=== PATIENT | female | born 1965 | race Caucasian/White ===

== ENCOUNTER → 2020-07-04 08:32 | Outpatient (BNVA) | payer OTHER, SELFPAY | PROVIDERS: Visit Provider Family Medicine Adult Medicine | DX: Z76.89 Persons encountering health services in other specified circumstances (principal) ==

== ENCOUNTER → 2020-09-11 14:39 | Outpatient (BNVA) | payer OTHER, SELFPAY | PROVIDERS: Visit Provider Family Medicine Adult Medicine | DX: Z76.89 Persons encountering health services in other specified circumstances (principal) ==

== ENCOUNTER → 2020-10-31 10:52 | Outpatient (BNVA) | payer OTHER, SELFPAY | PROVIDERS: Visit Provider Family Medicine Adult Medicine ==

== ENCOUNTER 2021-10-01 17:10 | Outpatient (REF) | payer OTHER, SELFPAY ==
[2021-10-01 18:42] LABS: Amphetamine Screen Urine Not Detected (Not Detect); Barbiturates, Urine Not Detected (Not Detect); Benzodiazepines Screen Urine Not Detected (Not Detect); Cannabinoid Screen Urine Not Detected (Not Detect); Cocaine Screen Urine Not Detected (Not Detect); Fentanyl, urine Not Detected (Not Detect); Opiate Screen Urine Not Detected (Not Detect); Phencyclidine Screen Urine Not Detected (Not Detect)
[2021-10-08 12:14] LABS: Codeine, Ur NEGATIVE; Hydrocodone, Ur NEGATIVE
[2021-10-08 12:15] LABS: Hydromorphone, Ur NEGATIVE; Morphine, Ur NEGATIVE; Oxycodone, Ur NEGATIVE
[2021-10-08 12:16] LABS: Norhydrocodone, Ur NEGATIVE; Oxymorphone, Ur NEGATIVE
[2021-10-08 12:18] LABS: Nordiazepam, GCMS Urine NEGATIVE; Oxazepam, GCMS Urine NEGATIVE
[2021-10-08 12:19] LABS: Alphahydroxymidazolam,GCMS Ur NEGATIVE; Alphahydroxytriazolam, GCMS Ur NEGATIVE; Alprazolam, GCMS Urine NEGATIVE; Temazepam, GCMS Urine NEGATIVE
[2021-10-08 12:20] LABS: Aminoclonazepam, GCMS Urine NEGATIVE; Flurazepam Metabolite,GCMS Ur NEGATIVE
== END 2021-10-01 17:11 | disposition home or self-care (01) ==
LOC: HO.LAB 17:10
PROVIDERS: Visit Provider Physician Assistant
DX: F11.90 Opioid use, unspecified, uncomplicated (principal)
CPT/HCPCS: 80307; 80346; 80364; 80365

== ENCOUNTER 2021-11-14 10:34 | Outpatient (REF) | payer OTHER, SELFPAY ==
--- NOTE | 2021-11-14 11:29 | ECG_ITS ---
Test Reason : CP Blood Pressure : / mmHG Vent. Rate : 064 BPM Atrial Rate : 064 BPM P-R Int : 196 ms QRS Dur : 076 ms QT Int : 424 ms P-R-T Axes : 070 032 030 degrees QTc Int : 437 ms Normal sinus rhythm with sinus arrhythmia Possible Left atrial enlargement Borderline ECG No previous ECGs available Referred By: Glenn Obrien Electronically Signed By:Pedro Luis Alejandro
[2021-11-14 11:43] LABS: Hematocrit 37.2 % (37.0-47.0); Hemoglobin 11.9 g/dl (12.0-16.0); Mean Corpuscular Hemoglobin 30.1 pg (27.0-33.0); Mean Corpuscular Volume 94.2 fL (80.0-98.0); Mean Platelet Volume 12.7 fL (9.4-12.3); Platelet Count 241 X10*3/uL (160-400); Red Blood Count 3.95 X10*6/uL (4.20-5.50); Red Cell Distribution Width 12.8 % (11.0-16.0)
[2021-11-14 12:09] LABS: Estimated Average Glucose 114 mg/dL; Hemoglobin A1c % 5.6 %
[2021-11-14 12:18] LABS: Alanine Aminotransferase 32 U/L (0-31); Albumin Level 4.3 g/dL (3.5-5.0); Alkaline Phosphatase 76 U/L (39-117); Anion Gap 10 (12-20); Aspartate Amino Transferase 43 U/L (5-31); Bilirubin Total 0.5 mg/dL (0.0-1.0); Blood Urea Nitrogen 15 mg/dL (9-16); Calcium 9.9 mg/dL (8.4-10.2); Carbon Dioxide 31 mmol/L (22-29); Chloride 103 mmol/L (96-108); Cholesterol 235 mg/dL; Estimated Glomerular Filt Rate > 60; Glucose Fasting 97 mg/dL (60-99); HDL Cholesterol 73 mg/dL; LDL Cholesterol Calculated 148 mg/dl; Potassium 4.9 mmol/L (3.3-5.1); Sodium 139 mmol/L (135-145); Total Protein 7.2 g/dL (6.5-8.0); Triglycerides 74 mg/dL
[2021-11-14 12:41] LABS: TSH reflex Free T4 3.03 uIU/mL (0.32-4.0)
[2021-11-18 08:07] LABS: Codeine, Ur NEGATIVE
[2021-11-18 08:08] LABS: Hydrocodone, Ur NEGATIVE; Hydromorphone, Ur NEGATIVE; Morphine, Ur NEGATIVE; Oxycodone, Ur NEGATIVE
[2021-11-18 08:09] LABS: Norhydrocodone, Ur NEGATIVE; Noroxycodone, Ur NEGATIVE; Oxymorphone, Ur NEGATIVE
== END 2021-11-14 10:35 | disposition home or self-care (01) ==
LOC: HO.LAB 10:34
PROVIDERS: Absent Provider Nurse Practitioner Acute Care; PCP Physician Assistant; Visit Provider Physician Assistant
DX: Z01.818 Encounter for other preprocedural examination (principal); Z13.29 Encounter for screening for other suspected endocrine disorder; Z13.220 Encounter for screening for lipoid disorders; F11.90 Opioid use, unspecified, uncomplicated
CPT/HCPCS: 80053; 80061; 80364; 80365; 83036; 84443; 85027; 93005

== ENCOUNTER 2022-04-23 10:00 | Outpatient (RCR) | payer OTHER, SELFPAY ==
[2022-04-07 10:20] VITALS: BP 144/67
--- NOTE | 2022-04-07 15:23 | MHC.PT.EP ---
[facility] [place] Office [place] Office [place] Office [address] [place] [address] [address] [phone] F: [phone] F: [phone] F: [phone] F: [phone] Physical Therapy Plan of Care Date of Evaluation: Date of Surgery: Diagnosis: THORACOLUMBAR AND LUMBOSACRAL DISC DISORDER Rt LE QUAD/ PATELLAR TENDON / ITB STRAIN Assessment: 56 YO FEMALE REF TO PT WITH AGNES SHPAIN AND AGNES HAND NUMBNESS x 6 MONTHS - SHE ALSO PRESENTED NOTING Rt KNEE/ ITB INJURY APPROX 6 WKS AGO WHICH IS IMPACTUNG HER OVERALL FUNCTIONAL MOB. OBJECTIVELY, Pt HAS DOMINANT PECTS AND UT- SHE HAS ANT GH DRIFT, DECR POSTURAL AWARENESS, LIMITATIONS IN CERV AND SH END ROM, DECR SCAP STAB/ POST RC STRENGTH, AND PAIN/ PSEUDO TOS. FUNCTIONALLY, Pt HAS DIFFIC SLEEPING, LIMITED W EXERCISING (CROSS FIT) , AND DECR ALEXANDER TO PERFORM HIGHER LEVEL HOUSE CHORES. Pt IS A GOOD CANDIDATE FOR SKILLED PT TO GUIDE HER WITH SELF-SX PAIN MGMT, MODIFY EXER ROUTINE/ STRETCHING, AND SCAP STRENGTH. Frequency and Duration: The patient will be seen 2 x WK x 4 WKS Short Term Goals: *Pt DEMON INDEP SELF-POSTURAL CORRECT/ SCAP MM ACTIV IN 2 WKS *Pt'S AGNES SH PAIN DECR TO 2-3/10 AND AGNES HAND SXS DECR BY 75* IN 3 WKS *COMPLETE ASSESSMENT *Pt DEMON WFL AROM CERV AND AGNES SH IN 2 WKS Custodial Goals: *Pt INDEP W HEP AND SELF-SX MGMT STRATEGIES IN 4 WKS *IMPROVED OSWESTRY SCORE BY 5-8 POINTS (AT EVAL 26/45) IN 4 WKS Treatment Plan: Modalities to reduce pain, spasms and effusion. Manual therapy to restore motion and function. Therapeutic exercise to improve strength and flexibility. Neuromuscular re-education for posture and balance. Therapeutic activities to return to functional activities of daily living. Electronically signed by: Radha Barragan, PT Please sign and return to therapist. Thank you for your referral.
--- NOTE | 2022-04-27 13:25 | MHC.PT.DC ---
[facility] [place] Office [place] Office [place] Office [address] Douglas Lauren [address] [phone] F: [phone] F: [phone] F: [phone] F: [phone] Physical Therapy Discharge Report Diagnosis: THORACOLUMBAR AND LUMBOSACRAL DISC DISORDER Rt LE QUAD/ PATELLAR TENDON / ITB STRAIN Date of Surgery: Date of Evaluation: 04/07/22 Date of Discharge: 04/27/22 Treatments to Date: 2 Cancellations to Date: 1 No Shows to Date: 1 Discharge Status: Achieved Goals Improved Function Independent with HEP Patient Elected to Stop Discharge Summary: Pt HAS PROGRESSED NICELY IN PT, WE HAVE EDUC HER RE SELF-MGMT OF SXS AND DEV A PROGR HEP TO ADDRESS MID BACK MM ACTIV AND REDUCE UT DOMINANCE. SHE NOTED SIGNIF REDUCTION IN HER BACK PAIN AND SHE WAS INDEP W SELF CORRECTION OF HER POSTURE. SHE FEELS READY TO CONT ON HER OWN AT THIS TIME, AND , IS THEREFORE DISCHARGED FROM PT AT THIS TIME. Electronically signed by: Radha Barragan,PT Please sign and return to therapist. Thank you for your referral.
== END 2022-04-27 13:25 | disposition home or self-care (01) ==
LOC: HO.PT 10:00
PROVIDERS: PCP Physician Assistant; Visit Provider Physician Assistant
DX: M51.9 Unspecified thoracic, thoracolumbar and lumbosacral intervertebral disc disorder (principal)
CPT/HCPCS: 97110; 97140; 97162; 97530

== ENCOUNTER 2022-05-04 08:25 | Outpatient (REF) | payer OTHER, SELFPAY ==
--- NOTE | ~2022-05-04 | XR_ITS ---
EXAMINATION: 1. RADIOGRAPHS RIGHT KNEE 2. RADIOGRAPHS STANDING BILATERAL KNEES CLINICAL INFORMATION: Knee pain COMPARISON: None TECHNIQUE: Standing frontal views of both knees were obtained. Additional lateral and patellar sunrise views of the right knee were obtained. FINDINGS: Right knee: No fracture or dislocation. Tiny suprapatellar joint effusion. Joint spaces are well-maintained. No significant degenerative changes. No focal soft tissue swelling of the anterior knee. Standing frontal left knee: Minimal narrowing of the medial joint space height.: XR/XR knee standing BI IMPRESSION: -Small suprapatellar joint effusion of the right knee. -Minimal degenerative changes of the left knee.
--- NOTE | ~2022-05-04 | XR_ITS ---
EXAMINATION: 1. RADIOGRAPHS RIGHT KNEE 2. RADIOGRAPHS STANDING BILATERAL KNEES CLINICAL INFORMATION: Knee pain COMPARISON: None TECHNIQUE: Standing frontal views of both knees were obtained. Additional lateral and patellar sunrise views of the right knee were obtained. FINDINGS: Right knee: No fracture or dislocation. Tiny suprapatellar joint effusion. Joint spaces are well-maintained. No significant degenerative changes. No focal soft tissue swelling of the anterior knee. Standing frontal left knee: Minimal narrowing of the medial joint space height.: XR/XR knee RT 2V IMPRESSION: -Small suprapatellar joint effusion of the right knee. -Minimal degenerative changes of the left knee.
== END 2022-05-04 08:26 | disposition home or self-care (01) ==
LOC: HO.HOSX 08:25
PROVIDERS: Visit Provider Physician Assistant
DX: M25.561 Pain in right knee (principal); M25.562 Pain in left knee
CPT/HCPCS: 73560; 73565

== ENCOUNTER 2022-05-15 18:31 | Outpatient (REF) | payer OTHER, SELFPAY ==
--- NOTE | ~2022-05-15 | MR_ITS ---
EXAMINATION: MR KNEE WITHOUT CONTRAST, RIGHT CLINICAL INFORMATION: Right knee pain. COMPARISON: Radiographs 05/04/2022. TECHNIQUE: MRI of the knee without contrast was performed using routine sequences on a high-field scanner. Additional sagittal images, to include the quadriceps myotendinous junction, are performed. FINDINGS: MENISCI: MEDIAL MENISCUS: There may be a small peripheral, ill-defined undersurface tear at the junction of the body and posterior horn. LATERAL MENISCUS: Inner margin/undersurface tear of the posterior horn/body with a portion of the meniscus displaced into the meniscotibial recess posteriorly. LIGAMENTS: CRUCIATE: There is mild edema along the ACL which may represent a mild sprain. COLLATERAL: Intact. EXTENSOR MECHANISM: Intact. ARTICULAR CARTILAGE/BONE: PATELLOFEMORAL COMPARTMENT: Focal articular cartilage irregularity of the medial trochlea inferiorly. MEDIAL COMPARTMENT: Peripheral cartilage thinning and subchondral marrow edema of the tibia medially. LATERAL COMPARTMENT: Mild bone bruise of the femoral condyle anterolaterally. JOINT FLUID AND BURSAE: Moderate joint effusion. MR/MR knee RT wo con IMPRESSION: Inner margin/undersurface tearing of the lateral meniscus at the junction of the posterior horn and body, where a portion of the meniscal periphery is displaced into the meniscotibial recess. Possible small undersurface tear of the medial meniscus peripherally at the junction of the body and posterior horn. Probable mild ACL sprain. The quadriceps tendon is intact. Mild patellofemoral/medial compartment osteoarthritis and mild bone bruise at the anterolateral aspect of the lateral femoral condyle with moderate joint effusion.
== END 2022-05-15 18:32 | disposition home or self-care (01) ==
LOC: HO.MRI 18:31
PROVIDERS: Visit Provider Physician Assistant
DX: S76.101A Unspecified injury of right quadriceps muscle, fascia and tendon, initial encounter (principal)
CPT/HCPCS: 73721

== ENCOUNTER 2022-06-03 09:52 | Day surgery (SDC) | payer OTHER, SELFPAY ==
[2022-06-03] VITALS (9 sets, daily range): BP systolic 103–120; BP diastolic 46–66; PULSE 54–65; RESP 15–20; TEMP 36.2–36.4; O2SAT 98–100; BMI 21.0
[2022-06-03] MEDS: Lactated Ringers 1,000 ML 50 ML IVCONT (10:20)
--- NOTE | 2022-06-03 13:16 | MHC.SHP ---
Pre-Procedural Eval Section A Date of Service: 06/03/22 The patient is an INPATIENT: No Changes since office visit: Yes Patient answered all questions; No Cold of Flu in the past 2 weeks, No New Medical Problems and No Changes in Medication The History & Physical has been completed within 30 days and I have reviewed it.: Yes Section B Chief Complaint: Other tear of lateral meniscus, current injury, ri Allergies: Allergies Allergy/AdvReac Type Severity Reaction Status Date / Time No Known Allergies Allergy Verified 06/03/22 10:30 Plan I have reviewed the history and physical and performed a pertinent physical examination on my patient. No changes have occurred unless specified.
--- NOTE | 2022-06-03 13:47 | HO.ANESPROP2 ---
HPI - Anesthesia Eval Consult details Narrative: 56F for right knee scope PMFSH Active Problems Active Problems: All Active Problems (Updated 05/25/22 @ 13:49 by Kenn Madison) Tear of lateral meniscus of right knee (Acute) Injury of quadriceps tendon (Acute) Recurrent right knee instability (Acute) IT band syndrome (Acute) Right knee pain (Acute) Paresthesia of hand, bilateral (Acute) JADA (generalized anxiety disorder) (Acute) Radiculopathy of cervical spine (Acute) Borderline high cholesterol (Acute) Elevated LFTs (Acute) Annual physical exam (Acute) Chronic pain disorder (Acute) Pre-op evaluation (Acute) Screening for hypothyroidism (Acute) Screening for hypercholesterolemia (Acute) Screening for diabetes mellitus (DM) (Acute) Right lumbar radiculopathy (Acute) Past Medical History Medical History Colon cancer screening Right lumbar radiculopathy Family History Family history of problems with anesthesia: No Surgical History History of Problems with Anesthesia: No Social History Social History Housing: House Alcohol intake: never Patient Tobacco Use Status: Never used Tobacco Tobacco use type: Cigarette e-Cigarette/Vaping Use: Never Used Second Hand Smoke Exposure: No Are you DNR?: No Advance Directives: No Advance Directives Information Provided: Yes Nutrition Risks: No Nutritional Risk Current occupational status: employed 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[employer], 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 Cognitive needs: No Hearing needs: No Vision needs: No Meds Allergies Allergy/AdvReac Type Severity Reaction Status Date / Time No Known Allergies Allergy Verified 06/03/22 10:30 Active Medications: Current Medications Lactated Ringer's (Lr) 1,000 mls @ 50 mls/hr IVCONT .Q20H ANUSHA Last Admin: 06/03/22 10:20 Dose: 50 mls/hr Home Medications Medication Instructions Recorded Confirmed Last Taken Type lorazepam 0.5 mg tablet 0.5 mg PO BID PRN Anxiety 12/09/21 05/28/22 06/02/22 History Exam Exam Date and Time: June 03, 2022 1347 Height,Weight and Vital Signs: Height 5 ft 2 in Weight 52.163 kg Airway Mallampati Class: II TM Dist: >3cm Neck ROM: Full Loose/Missing/Broken Teeth: Yes (Caps and fillings ) Heart: S1,S2 Lungs: b/l breath sounds Assessment and Plan Assessment Anesthesia Assessment: Anesthesia Plan Discussed and Chart Reviewed Final Anesthetic Review Family History of Problems with Anesthesia: No History of Problems with Anesthesia: No NPO: Yes ASA Class: II Final Preanesthetic Review: Meds/Allgs Chart Reviewed, Consent Obtained/Reviewed and Anes Risks/Benef Reviewed Patient Risk: Intermediate Procedure Risk: Intermediate Anesthetic Plan Anesthetic Plan: GA Disposition: Standard PACU
--- NOTE | 2022-06-03 14:35 | PM.OP ---
Brief Operative Note Date of Service: 06/03/22 Pre-op diagnosis: Right knee lateral meniscus tear Post-op diagnosis: other (1) same 2) medial PF OA) Procedure: Right knee with partial lateral meniscectomy Surgeon: Christopher Landin MD Anesthesia: GETA and local Was an Inspector Multifocal Lens used for this Procedure?: No Estimated blood loss (mL): 1 IV fluids (mL): 500 Pathology: none sent Condition: stable Disposition: PACU
[2022-06-03] MEDS: fentaNYL citrate/PF 100 MCG/2 ML VIAL 50 MCG IVPUSH ×2 (15:15→15:20)
[2022-06-03] MEDS: oxyCODONE HCl Immed Release 5 MG TABLET PO (16:15)
--- NOTE | 2022-06-08 10:03 | W.PM.OPN ---
Operative Note Operative Note Date of Service: 06/03/22 Narrative: Date of Service: 06/03/22 Pre-op diagnosis: Right knee lateral meniscus tear Post-op diagnosis: other (1) same 2) medial PF OA) Procedure: Right knee with partial lateral meniscectomy Surgeon: Christopher Landin MD Anesthesia: GETA and local Was an Advertising Assistant Manager used for this Procedure?: No Estimated blood loss (mL): 1 IV fluids (mL): 500 Pathology: none sent Condition: stable Disposition: PACU Procedure in detail: Patient was brought to the operating room placed supine on the arthroscopic table and prepped and draped in standard sterile fashion. A time-out was called to identify proper site proper procedure proper surgeon and IV antibiotics per weight were administered. I began by exsanguinating the limb and insufflating tourniquet to 300 mm Hg. Then made a standard anterolateral stab incision. The knee was insufflated with water and 30 degree arthroscope was placed. There was grade 0 fibrillations of the patella and the suprapatellar pouch and the gutters were clean. I descended into the medial compartment where I made my medial portal under direct visualization. There were no changes to the medial compartment. The meniscus and cartilage were normal. The ACL was examined and intact. I entered the lateral compartment and there was a degenerative tear through the body of the lateral meniuscus. I probed this and there was at least 50% of the peripheral body intact and this was stable. The root was intact. This was a predominantly white/white tear and repair was not indicated. I therefore excised the torn portion with a combination of a shaver and biter until the meniscus flap was removed. The remaining meniscus was stable. Approximately 40 % of the meniscal volume was removed. I took the knee through full ROM and all loose meniscal fragments were removed. The cartilage was unormal. I took my final pictures. I then removed all instrumentation and closed the portals with skin glue. 25 mL of 2% Marcaine with epinephrine was injected into the joint and the surrounding soft tissues. Patient was then placed in sterile dressing extubated brought recovery room stable condition. There were no known complications.
== END 2022-06-03 17:10 | disposition home or self-care (01) ==
PROVIDERS: Visit Provider Orthopaedic Surgery
PROC: (CPT 29870; principal; 2022-06-03 12:20)
DX: S83.281A Other tear of lateral meniscus, current injury, right knee, initial encounter (principal); M17.11 Unilateral primary osteoarthritis, right knee; X50.1XXA Overexertion from prolonged static or awkward postures, initial encounter; Y93.89 Activity, other specified; Y92.9 Unspecified place or not applicable; Y99.8 Other external cause status; Z79.899 Other long term (current) drug therapy
CPT/HCPCS: 29881; A4649; J0131; J0690; J1100; J1885; J2250; J2405; J2795; J3010

== ENCOUNTER 2022-07-17 10:00 | Outpatient (RCR) | payer OTHER, SELFPAY ==
--- NOTE | 2022-06-08 13:27 | MHC.PT.EP ---
[facility] [place] Office [place] Office [place] Office [address] Douglas Lauren [address] [phone] F: [phone] F: [phone] F: [phone] F: [phone] Physical Therapy Plan of Care Date of Evaluation: Date of Surgery: 06/03/22 Diagnosis: S/P LATERAL MENISECTOMY Assessment: AVERY IS A PLEASANT 56 YO FEMALE WHO PRESENTS S/P KNEE /MENISECTOMY. PRESENTS POD #5 FOR ORTHOPEDIC FOLLOW UP AND PT EVALUATION. UPON EXAM SHE DEMONSTRATES THE EXPECTED IMPAIRMENTS OF DECREASED ROM, DECREASED STRENGTH, ALTERED POSTURE AND POSITIONING,ALTERED GAIT AND BALANCE, AND INCREASED PAIN AND EDEMA. FUNCTIONAL LIMITATIONS INCLUDE DECREASED ABILITY TO PERFORM HOMEMAKING AND SELF-CARE TASKS, DECREASED ABILITY TO PERFORM WALKING, RUNNING, JUMPING AND SQUATTING, INABILITY TO DRIVE AND PERFORM WORK TASKS, DECREASED PARTICIPATION IN COMMUNITY AND RECREATIONAL ACTIVITIES AND DISRUPTED SLEEP. THE Pt IS A GOOD CANDIDATE FOR SKILLED PT DUE TO AGE, POTENTIAL REMEDIATION OF IMPAIRMENTS, TYPICAL DISEASE/CONDITION PROGRESSION AND PROGNOSIS, COMORBIDITIES, AND MOTIVATION. PT WOULD BENEFIT FROM TAILORED PROGRAM OF THERAPEUTIC ACTIVITIES, FUNCTIONAL TRAINING, GAIT TRAINING, POSTURAL EDUCATION, NEUROMUSCULAR RE-EDUCATION, AND MODALITIES NEEDED. 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 Manual therapy to restore motion and function. Therapeutic exercise to improve strength and flexibility. Neuromuscular re-education for posture and balance. Therapeutic activities to return to functional activities of daily living. Electronically signed by: SAMIA HINES PT, DPT Please sign and return to therapist. Thank you for your referral.
--- NOTE | 2022-08-11 14:37 | MHC.PT.DC ---
[facility] [place] Office [place] Office [place] Office [address] Douglas Lauren [address] [phone] F: [phone] F: [phone] F: [phone] F: [phone] Physical Therapy Discharge Report Diagnosis: S/P LATERAL MENISECTOMY Date of Surgery: 06/03/22 Date of Evaluation: 06/08/22 Date of Discharge: 08/11/22 Treatments to Date: 7 Cancellations to Date: 0 No Shows to Date: 0 Discharge Status: Achieved Goals Improved Function Independent with HEP Discharge Summary: At last attended visit Kiesha was progressing well and performing higher level stabilization activities and had returned to a modified gym program. She chose to not schedule further visits and is DCed at this time Electronically signed by: Isabel Mcdaniel PT, DPT Please sign and return to therapist. Thank you for your referral.
== END 2022-08-11 14:37 | disposition home or self-care (01) ==
LOC: HO.PT 10:00
PROVIDERS: Visit Provider Physician Assistant
DX: S83.281A Other tear of lateral meniscus, current injury, right knee, initial encounter (principal)
CPT/HCPCS: 97110; 97116; 97161; 97530

== ENCOUNTER 2022-12-14 10:12 | Outpatient (REF) | payer OTHER, SELFPAY ==
[2022-12-14 13:37] LABS: Hematocrit 37.1 % (37.0-47.0); Hemoglobin 11.8 g/dl (12.0-16.0); Mean Corpuscular HGB Conc 31.8 g/dl (31.0-35.0); Mean Corpuscular Hemoglobin 29.3 pg (27.0-33.0); Mean Corpuscular Volume 92.1 fL (80.0-98.0); Mean Platelet Volume 13.1 fL (9.4-12.3); Platelet Count 213 X10*3/uL (160-400); Red Blood Count 4.03 X10*6/uL (4.20-5.50); Red Cell Distribution Width 13.4 % (11.0-16.0); White Blood Count 5.3 X10*3/uL (4.8-10.8)
[2022-12-14 14:26] LABS: Amphetamine Screen Urine Not Detected (Not Detect); Barbiturates, Urine Not Detected (Not Detect); Benzodiazepines Screen Urine Not Detected (Not Detect); Cannabinoid Screen Urine Not Detected (Not Detect); Cocaine Screen Urine Not Detected (Not Detect); Fentanyl, urine Not Detected (Not Detect); Opiate Screen Urine Not Detected (Not Detect); Phencyclidine Screen Urine Not Detected (Not Detect)
[2022-12-14 14:48] LABS: Alanine Aminotransferase 19 U/L (0-31); Albumin Level 4.3 g/dL (3.5-5.0); Alkaline Phosphatase 73 U/L (39-117); Anion Gap 13 (12-20); Aspartate Amino Transferase 32 U/L (5-31); Bilirubin Total 0.6 mg/dL (0.0-1.0); Blood Urea Nitrogen 13 mg/dL (9-16); Calcium 9.3 mg/dL (8.4-10.2); Carbon Dioxide 29 mmol/L (22-29); Chloride 103 mmol/L (96-108); Cholesterol 197 mg/dL; Estimated Glomerular Filt Rate > 60; Glucose Fasting 92 mg/dL (60-99); HDL Cholesterol 74 mg/dL; LDL Cholesterol Calculated 114 mg/dl; Potassium 4.7 mmol/L (3.3-5.1); Sodium 140 mmol/L (135-145); TSH reflex Free T4 3.12 uIU/mL (0.32-4.0); Total Protein 6.9 g/dL (6.5-8.0); Triglycerides 48 mg/dL
== END 2022-12-14 10:13 | disposition home or self-care (01) ==
LOC: HO.LAB 10:12
PROVIDERS: PCP Physician Assistant; Visit Provider Physician Assistant
DX: Z13.220 Encounter for screening for lipoid disorders (principal); Z13.29 Encounter for screening for other suspected endocrine disorder; F11.20 Opioid dependence, uncomplicated; Z86.39 Personal history of other endocrine, nutritional and metabolic disease
CPT/HCPCS: 80053; 80061; 80307; 84443; 85027

== ENCOUNTER 2023-03-22 10:19 | Outpatient (AMB) | payer OTHER, SELFPAY ==
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
[2023-03-22 10:30] VITALS: BP 110/60; PULSE 63; O2SAT 96; BMI 21.8
== END 2023-03-22 10:52 | disposition home or self-care (01) ==
LOC: HO.HMGH 10:20
PROVIDERS: PCP Physician Assistant; Visit Provider Physician Assistant
DX: F11.20 Opioid dependence, uncomplicated (principal); F41.1 Generalized anxiety disorder
CPT/HCPCS: 99214

== ENCOUNTER 2023-03-22 11:03 | Outpatient (REF) | payer OTHER, SELFPAY ==
[2023-03-26 12:58] LABS: Buprenorphine 73 (H); Naloxone NEGATIVE
== END 2023-03-22 11:04 | disposition home or self-care (01) ==
LOC: HO.LAB 11:03
PROVIDERS: PCP Physician Assistant; Visit Provider Physician Assistant
DX: F11.20 Opioid dependence, uncomplicated (principal)
CPT/HCPCS: 80307; 80348; 80362

== ENCOUNTER 2023-06-17 08:32 | Outpatient (AMB) | payer OTHER, SELFPAY ==
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
[2023-06-17 08:36] VITALS: BP 110/68; PULSE 63; O2SAT 97; BMI 22.1
== END 2023-06-17 08:54 | disposition home or self-care (01) ==
PROVIDERS: PCP Physician Assistant; Visit Provider Physician Assistant
DX: F41.1 Generalized anxiety disorder (principal); F11.20 Opioid dependence, uncomplicated
CPT/HCPCS: 99213

== ENCOUNTER 2023-12-29 10:28 | Outpatient (AMB) | payer OTHER, SELFPAY ==
[2023-12-29 10:31] VITALS: BP 100/60; PULSE 75; O2SAT 100; BMI 21.3
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
== END 2023-12-29 11:06 | disposition home or self-care (01) ==
PROVIDERS: PCP Physician Assistant; Visit Provider Physician Assistant
DX: Z00.00 Encounter for general adult medical examination without abnormal findings (principal); F11.20 Opioid dependence, uncomplicated; F41.1 Generalized anxiety disorder; M54.16 Radiculopathy, lumbar region; E78.9 Disorder of lipoprotein metabolism, unspecified
CPT/HCPCS: 99396

== ENCOUNTER 2024-08-24 15:11 | Outpatient (AMB) | payer OTHER, SELFPAY ==
[2024-08-24 15:27] VITALS: BP 120/68; PULSE 70; O2SAT 97; BMI 20.1
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
== END 2024-08-24 16:05 | disposition home or self-care (01) ==
PROVIDERS: PCP Physician Assistant; Visit Provider Physician Assistant
DX: M54.12 Radiculopathy, cervical region (principal); F11.20 Opioid dependence, uncomplicated

== ENCOUNTER → 2024-08-24 15:11 | Outpatient (BNVA) | payer OTHER, SELFPAY | PROVIDERS: PCP Physician Assistant; Visit Provider Physician Assistant | DX: M54.12 Radiculopathy, cervical region (principal); F11.20 Opioid dependence, uncomplicated | CPT/HCPCS: 96127 ==

== ENCOUNTER 2024-10-17 07:54 | Outpatient (REF) | payer OTHER, SELFPAY ==
--- OUTSIDE RECORDS SUMMARY | 2024-10-17 07:57 | XMS_ITS | Encounter Summary ---
Author Organization [facility] Address [address] [place] [address] Care Team Providers Care Director Of Casework Services Name Role Phone Luisa Alamo MD Primary Care Provider Unavailable Gomez Stroud MD Primary Care Provider [phone] Reason for Visit * Reason Onset Date Comments TEST RESULTS 02/04/2021 LETTER Encounter Details Date Type Department Care Team Description 02/04/2021 Telephone Medicine/Pediatrics - [address] [id number] Elena Anderson PA-C [address] [place] [address] TEST RESULTS (LETTER) Social History Tobacco Use Types Packs/Day Years Used Date Smoking Tobacco: Never Smokeless Tobacco: Never Alcohol Use Standard Drinks/Week Comments Yes 0 (1 standard drink = 0.6 oz pur e alcohol) rarely Sex Assigned at Date Recorded Not on file COVID-19 Exposure Response Date Recorded In the last month, have you been in contact with someone who was confirmed or suspected to have Coronavirus / COVID-19? No / Unsure 02/03/2021 11:14 AM EDT documented as of this encounter Miscellaneous Notes * Telephone Encounter - Juan Daniel Matthews - 02/04/2021 4:18 PM EDT Left detailed voice message for patient to call back or f/u prn. *If pt calls back, TB Test Negative.* RESULTS HAVE BEEN PLACED IN [facility]. documented in this encounter Plan of Treatment Not on file documented as of this encounter Visit Diagnoses Not on filedocumented in this encounter Care Teams Director Of Casework Services Relationship Specialty Start Date End Date Luisa Alamo MD PCP - General Internal Medicine 07/01/1801/13 Gomez Stroud MD [address] [place] [id number] PCP - General Internal Medicine 02/11/21 documented as of this encounter
--- OUTSIDE RECORDS SUMMARY | 2024-10-17 07:57 | XMS_ITS | Encounter Summary ---
Author Organization [facility] Address [address] [place] [address] Care Team Providers Care Print Color Matcher Name Role Phone Luisa Alamo MD Primary Care Provider Unavailable Gomez Stroud MD Primary Care Provider [phone] Encounter Details Date Type Department Care Team Description 02/22/2020 Orders Only Adult Medicine [address] [address] Araceli Prasad PA-C Abdominal pain, unspecified abdominal location (Primary Dx) Social History Tobacco Use Types Packs/Day Years Used Date Smoking Tobacco: Never Smokeless Tobacco: Never Alcohol Use Standard Drinks/Week Comments Yes 0 (1 standard drink = 0.6 oz pur e alcohol) rarely Sex Assigned at Date Recorded Not on file documented as of this encounter Plan of Treatment Not on file documented as of this encounter Visit Diagnoses Diagnosis Abdominal pain, unspecified abdominal location- Primary documented in this encounter Care Teams Print Color Matcher Relationship Specialty Start Date End Date Luisa Alamo MD PCP - General Internal Medicine 07/01/1801/13 Gomez Stroud MD [address] [place] [id number] PCP - General Internal Medicine 02/11/21 documented as of this encounter
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
[2024-10-17 08:50] LABS: Amphetamine Screen Urine Not Detected (Not Detect); Barbiturates, Urine Not Detected (Not Detect); Benzodiazepines Screen Urine Not Detected (Not Detect); Buprenorphine Scr Positive (Not Detect); Cannabinoid Screen Urine POSITIVE (Not Detect); Cocaine Screen Urine Not Detected (Not Detect); Fentanyl, urine Not Detected (Not Detect); Methadone Screen, Urine Not Detected (Not Detect); Opiate Screen Urine Not Detected (Not Detect); Oxycodone Screen Urine Not Detected (Not Detect); Phencyclidine Screen Urine Not Detected (Not Detect)
== END 2024-10-17 07:55 | disposition home or self-care (01) ==
LOC: HO.LAB 07:54
PROVIDERS: PCP Physician Assistant; Visit Provider Physician Assistant
DX: F11.20 Opioid dependence, uncomplicated (principal)
CPT/HCPCS: 80307

== ENCOUNTER 2025-01-01 16:07 | Outpatient (REF) | payer OTHER, SELFPAY ==
[2025-01-01 20:05] LABS: Hematocrit 36.1 % (37.0-47.0); Hemoglobin 11.6 g/dl (12.0-16.0); Mean Corpuscular HGB Conc 32.1 g/dl (31.0-35.0); Mean Corpuscular Hemoglobin 30.4 pg (27.0-33.0); Mean Corpuscular Volume 94.5 fL (80.0-98.0); Mean Platelet Volume 12.9 fL (9.4-12.3); Platelet Count 208 X10*3/uL (160-400); Red Blood Count 3.82 X10*6/uL (4.20-5.50); Red Cell Distribution Width 13.2 % (11.0-16.0); White Blood Count 4.6 X10*3/uL (4.8-10.8)
[2025-01-01 20:08] LABS: Alanine Aminotransferase 31 U/L (0-31); Albumin Level 4.4 g/dL (3.5-5.0); Alkaline Phosphatase 63 U/L (39-117); Anion Gap 14 (12-20); Aspartate Amino Transferase 51 U/L (5-31); Bilirubin Total 0.2 mg/dL (0.0-1.0); Blood Urea Nitrogen 18 mg/dL (9-16); Carbon Dioxide 28 mmol/L (22-29); Chloride 104 mmol/L (96-108); Estimated Glomerular Filt Rate > 60; Glucose Random 107 mg/dL (60-115); Potassium 3.9 mmol/L (3.3-5.1); Sodium 142 mmol/L (135-145); Total Protein 7.3 g/dL (6.5-8.0)
== END 2025-01-01 16:08 | disposition home or self-care (01) ==
LOC: HO.LAB 16:07
PROVIDERS: PCP Physician Assistant; Visit Provider Physician Assistant
DX: Z00.00 Encounter for general adult medical examination without abnormal findings (principal); F41.1 Generalized anxiety disorder; M54.16 Radiculopathy, lumbar region; E78.9 Disorder of lipoprotein metabolism, unspecified
CPT/HCPCS: 36415; 80053; 85027; 96127

== ENCOUNTER 2025-01-01 16:07 | Outpatient (AMB) | payer OTHER, SELFPAY ==
--- OUTSIDE RECORDS SUMMARY | 2025-01-01 16:10 | XMS_ITS | Encounter Summary ---
Author Organization [facility] Address [address] [place] [address] Care Team Providers Care Intelligence Specialist Name Role Phone Luisa Alamo MD Primary Care Provider Unavailable Gomez Stroud MD Primary Care Provider [phone] Encounter Details Date Type Department Care Team Description 09/27/2018 Release of Information Medical Records [address] [place] [id number] Abstract, Provider Social History Tobacco Use Types Packs/Day Years [...] on filedocumented in this encounter Care Teams Intelligence Specialist Relationship Specialty Start Date End Date Luisa Alamo MD PCP - General Internal Medicine 07/01/1801/13 Gomez Stroud MD [address], [place] [id number] PCP - General Internal Medicine 02/11/21 documented as of this encounter
--- OUTSIDE RECORDS SUMMARY | 2025-01-01 16:10 | XMS_ITS | Encounter Summary ---
Author Organization [facility] Address [address] [place] [address] Care Team Providers Care Payroll Representative Name Role Phone Luisa Alamo MD Primary Care Provider Unavailable Gomez Stroud MD Primary Care Provider [phone] Encounter Details Date Type Department Care Team Description 02/22/2020 Orders Only Adult Medicine [address] [address] Araceli Prasad PA-C Abdominal pain, unspecified abdominal [...] Primary documented in this encounter Care Teams Payroll Representative Relationship Specialty Start Date End Date Luisa Alamo MD PCP - General Internal Medicine 07/01/1801/13 Gomez Stroud MD [address] [place] [phone] PCP - General Internal Medicine 02/11/21 documented as of this encounter
[2025-01-01 16:11] VITALS: BP 128/72; PULSE 79; TEMP 36.2; O2SAT 100
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
== END 2025-01-01 16:37 | disposition home or self-care (01) ==
LOC: HO.HMCH 16:08
PROVIDERS: PCP Physician Assistant; Visit Provider Physician Assistant
DX: Z00.00 Encounter for general adult medical examination without abnormal findings (principal); F41.1 Generalized anxiety disorder; M54.16 Radiculopathy, lumbar region

== ENCOUNTER 2025-08-07 15:50 | Outpatient (AMB) | payer OTHER, SELFPAY ==
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
[2025-08-07 15:59] VITALS: BP 126/70; PULSE 73; TEMP 36.3; O2SAT 99; BMI 21.1
== END 2025-08-07 16:18 | disposition home or self-care (01) ==
LOC: HO.HMCH 15:51
PROVIDERS: PCP Physician Assistant; Visit Provider Physician Assistant
DX: M54.16 Radiculopathy, lumbar region (principal); F41.1 Generalized anxiety disorder